=== PATIENT | female | born 1985 | race Caucasian/White ===

== ENCOUNTER → 2016-10-23 | Outpatient (CLI) | payer BC ==
[~2016-10-23] MED LIST: EFF75 PO; MULT-506 PO; NAPR1TAB9 PO; OMEG10007 PO
[2016-10-23 15:25] LABS: BASO % 0.5 %; BASO ABS # 0.04 K/uL (0-0.2); COMPLETE YES; EOS % 3.5 %; IG% 0.1 %; LYMPH ABS # 3.37 K/uL (1.2-3.4); MEAN CELL VOLUME 91.5 fL (80-100); MEAN CORPUSCULAR HEMOGLOBIN 30.6 pg (25-34); MEAN CORPUSCULAR HGB CONC 33.4 g/dl (32-36); MEAN PLATELET VOLUME 9.6 fL (7.4-10.4); MONO % 9.7 %; NEUT % 44.2 %; PLATELET COUNT 295 K/uL (130-400); RED BLOOD COUNT 4.48 M/uL (4.2-5.4); WHITE BLOOD COUNT 8.02 K/uL (4.8-10.8)
[2016-10-23 15:32] LABS: ALT/SGPT 24 U/L (12-78); BLOOD UREA NITROGEN 11 mg/dl (7-18); BUN/CREATININE RATIO 15.8 (10-20); CARBON DIOXIDE 27 mmol/L (21-32); CHLORIDE 104 mmol/L (98-107); CHOLESTEROL 205 mg/dl (0-200); CREATININE 0.69 mg/dl (0.60-1.20); GLUCOSE 92 mg/dl (70-99); POTASSIUM 3.9 mmol/L (3.5-5.1); SODIUM 138 mmol/L (136-145); TRIGLYCERIDES 52 mg/dl (0-150); VERY LOW DENSITY LIPOPROT CALC 10 mg/dl
[2016-10-23 15:43] LABS: ALB/GLOB RATIO 1.1 (0.9-2); ALKALINE PHOSPHATASE 99 U/L (45-117); AST/SGOT 20 U/L (15-37); CHOLESTEROL/HDL RATIO 2.5; HDL CHOLESTEROL 81 mg/dl
[2016-10-23 15:55] LABS: CALCIUM 9.4 mg/dl (8.5-10.1)
== END | disposition home or self-care (01) ==
LOC: C.LABSPEC 14:58
PROVIDERS: ATTEND Internal Medicine
DX: E78.5 Hyperlipidemia, unspecified (principal); R53.83 Other fatigue

== ENCOUNTER → 2017-03-01 | Outpatient (CLI) | payer BC | END | disposition home or self-care (01) | LOC: C.PAPS 14:34 | PROVIDERS: ATTEND Obstetrics & Gynecology | DX: Z01.419 Encounter for gynecological examination (general) (routine) without abnormal findings (principal) ==

== ENCOUNTER 2021-07-16 03:02 | Inpatient (IN) ==
[2021-07-16] MEDS ORDERED: OXYTOCIN 30 UNITS/500 ML BAG IV PRN ×3 (08:04→18:16)
[2021-07-16] MEDS: LACTATED RINGER'S 1,000 ML IV PRN ×3 (08:05→13:51)
[2021-07-16] MEDS ORDERED: BUPIVACAINE 0.25% 30 ML VIAL ONE (08:35)
[2021-07-16] MEDS ORDERED: ePHEDrine sulfate 50 MG/ML AMP ONE (08:35)
[2021-07-16] MEDS ORDERED: SODIUM CHLORIDE 0.9% INJ 10 ML VIAL ONE (08:35)
[2021-07-16 08:36] LABS: Hematocrit (blood only) 33.8 % (37-47); Hemoglobin 11.4 g/dL (12.0-16.0); Mean Corpuscular Hemoglobin 30.1 pg (25-34); Mean Corpuscular Hgb Conc 33.7 g/dL (32-36); Mean Corpuscular Volume 89.2 fL (80-100); Mean Platelet Volume 9.5 fL (7.4-10.4); Platelet Count 320 K/uL (130-400); RDW Coefficient of Variation 13.7 % (11.5-14.5); RDW Standard Deviation 44.7 fL (36.4-46.3); Red Blood Count 3.79 M/uL (4.2-5.4); White Blood Count 13.17 K/uL (4.8-10.8)
[2021-07-16] MEDS ORDERED: fentaNYL citrate 100 MCG/2 ML VIAL ONE (08:36)
[2021-07-16] MEDS ORDERED: fentaNYL 2MCG/ML ROPIVACAINE 1.25MG/ML 100 ML BAG EPI ONE (08:37)
[2021-07-16] MEDS ORDERED: NALOXONE HCL 1 MG in SODIUM CHLORIDE 0.9% 1000ML 1,000 ML IV PRN (08:47)
[2021-07-16] MEDS ORDERED: ONDANSETRON INJ 2 MG/ML 2 ML VIAL IV PRN (08:47)
[2021-07-16] MEDS ORDERED: fentaNYL 2MCG/ML ROPIVACAINE 1.25MG/ML 100 ML BAG EPI PRN (08:47)
[2021-07-16] MEDS ORDERED: NALOXONE HCL 0.4 MG/1 ML VIAL/CARP IV PRN (08:47)
[2021-07-16] MEDS ORDERED: ePHEDrine sulfate 50 MG/ML AMP IV PRN (08:47)
[2021-07-16] MEDS ORDERED: diphenhydrAMINE 50 MG/ML VIAL IV PRN (08:47)
[2021-07-16] MEDS ORDERED: NALBUPHINE HCL INJ 10 MG/ML AMP IV PRN (08:47)
--- NOTE | 2021-07-16 08:53 | Anesthesiology Consultation ---
Date of Service July 16, 2021 Assessment & Plan (1) Encounter for pre-operative examination: Chart Review Chart Review: Patient NOT seen in Pre Admission Testing and Acceptable Risk for Labor Epidural Consults Requested none ASA ASA2 Proposed Anesthesia Anesthesia Type: Labor Epidural and CSE Risk / Benefits Reviewed With: PT / POA / Parent / Guardian, Accepts Plan and Informed Consent Obtained History Height/Weight Height: 5 ft 6 in Weight: 80.739 kg Allergies Allergy/AdvReac Type Severity Reaction Status Date / Time No Known Allergies Allergy Unverified 05/27/15 16:10 Medications Home Medications Medication Instructions Recorded Confirmed Last Taken Fish Oil (Stanley-3) 1 cap PO #0 12/27/10 Unknown Multivitamin 1 tab PO DAILY #0 12/27/10 Unknown Naproxen (Aleve) 440 mg PO #0 12/27/10 Unknown VENLAFAXINE HCL (Effexor) 75 mg PO DAILY #0 tab 05/27/15 Unknown Active Medications Generic Name Dose Route Start Last Admin Trade Name Freq PRN Reason Stop Dose Admin Lactated Ringer's 1,000 mls @ 125 mls/hr 07/16/21 08:04 07/16/21 08:05 Lr IV 07/18/21 08:03 999 mls/hr .Q8H PRN Administration L&D Protocol Protocol NPO Date Last Intake of Fluids: 07/16/21 Time Last Intake of Fluids: 06:00 Date Last Intake of Solids: 07/15/21 Time Last Intake of Solids: 18:30 Past Medical History Medical History Hypertension affecting No known health problems Exercise / Class Metabolic Activity II 4-5 Yardwork/Stairs/Walk up hill Past Family History Family History Mother Hepatitis C Father Hypertension Past Surgical History Surgical History [place] teeth extracted Past Anesthesia History No Hx of Anesthesia Complications and No Family Hx of Anesthesia Complications History of PONV No Hx of PONV and No Hx of Motion Sickness Social History Smoking Status: Former smoker Smoking cigarettes per day: 5 Hx Alcohol Use: No Hx Substance Use: No Review of Systems no chest pain or sob Physical Exam Vital Signs Last Vital Signs Temp 36.5 C 07/16/21 07:55 Pulse 84 07/16/21 08:50 Resp 22 07/16/21 07:55 BP 147/89 H 07/16/21 07:53 Pulse Ox 98 07/16/21 08:50 ENMT Mouth: no TMJ abnormality Thyromental Distance: > or= 3.5 Finger Breadths Mallampati Class: II Neck normal visual inspection Respiratory normal respiratory effort Auscultation: lungs clear to auscultation bilaterally Cardiovascular Rate/Rhythm: regular rate and regular rhythm Musculoskeletal Spine: normal cervical ROM Neurologic moves all extremities Psychiatric Orientation: alert and oriented x 3 Testing Laboratory Results 07/16/21 08:24
[2021-07-16] MEDS ORDERED: miSOPROStoL 200 MCG TAB ONE (18:11)
[2021-07-16] MEDS ORDERED: ACETAMINOPHEN W/CODEINE #3 1 TAB PO PRN (18:16)
[2021-07-16] MEDS ORDERED: bisacodyL 10 MG SUPP PR PRN (18:16)
[2021-07-16] MEDS ORDERED: oxyCODONE/ACETAMINOPHEN 5mg/325mg TAB PO PRN (18:16)
[2021-07-16] MEDS ORDERED: miSOPROStoL 200 MCG TAB PR ONE (18:16)
[2021-07-16] MEDS ORDERED: BENZOCAINE 20% AER SPR 82.5 GM CAN EXT PRN (18:16)
[2021-07-16] MEDS ORDERED: ACETAMINOPHEN 325 MG TAB PO PRN (18:16)
[2021-07-16] MEDS ORDERED: HYDROCORTISONE ACETATE 25 MG SUPP PR PRN (18:16)
[2021-07-16] MEDS: IBUPROFEN 600 MG TAB PO PRN (18:29)
--- NOTE | 2021-07-16 20:17 | Delivery Summary ---
DATE OF SERVICE: 07/16/2021 DELIVERY NOTE: She is a 2, para 1. She had a previous spontaneous AB in the first trimester . Blood type is O positive, group B strep negative. She was scheduled for induction due to some spo radic elevations of blood pressure. However, when she arrived in the morning, she was already in act kathrine labor. She was 1 cm, posterior, was 100% effaced. She requested and received epidural anesthesi a. After receiving epidural anesthesia, the cervix was stretched to 4 cm. She was then placed on I V Pitocin to augment her contractions and get them more frequent. Eventually, her membranes were rup tured at about 6 cm. Fluid was clear. She then was stimulated. She went to full dilatation, pushed out a live male infant via direct occiput anterior position over an intact perineum. Cord was allow ed to pulse for a minute. Cord was then clamped, cut by the father. Cord blood was taken. With IV Pitocin running, the placenta was removed intact. Uterus contracted nicely. Inspection of t he perineum revealed a second-degree laceration. The perineum was torn slightly to the right. I use d a 2-0 Vicryl to approximate the vaginal mucosa out and to beyond the hymenal ring. I used a deep s uture of 2-0 Vicryl to approximate the bulbocavernosus muscle, separate deep suture to approximate th e perineal body and then a running subcuticular suture to approximate the perineal skin edges. Follo wing this, sponges were removed from the vagina. There was no hematoma formation, 800 mcg of Cytotec was placed, 4 tablets were placed rectally. Uterus contracted nicely. Estimated blood loss was 200 mL. Apgars will be deferred to the nurses. Job ID: [id number]
[2021-07-16] MEDS: DOCUSATE SODIUM 100 MG CAP PO SCH (20:46)
--- NOTE | 2021-07-16 22:02 | Anesthesia Procedure Note ---
Date of Service July 16, 2021 Anesthesia Post Epidural Note Vital Signs Vital Signs: Temp Pulse Resp BP Pulse Ox 36.7 C 93 H 20 140/66 96 07/16/21 20:15 07/16/21 20:15 07/16/21 20:15 07/16/21 20:15 07/16/21 17:50 Pain Intensity Bilateral Perineal: Pain Intensity: 2 Notes Mental Status: alert / awake / arousable and participated in evaluation Nausea / Vomiting: adequately controlled Pain: adequately controlled Airway Patency, RR, SpO2: stable & adequate BP & HR: stable & adequate Hydration State: stable & adequate Neuraxial Anesthesia: was administered and sensory block is resolving Anesthetic Complications: no major complications apparent and Pt Satisfied with anesthetic care Epidural: Removed without complications and With tip intact
[2021-07-17] MEDS: IBUPROFEN 600 MG TAB PO PRN ×2 (03:45→08:24)
[2021-07-17 06:21] LABS: Hematocrit (blood only) 32.3 % (37-47); Hemoglobin 10.7 g/dL (12.0-16.0); Mean Corpuscular Hemoglobin 29.6 pg (25-34); Mean Corpuscular Hgb Conc 33.1 g/dL (32-36); Mean Corpuscular Volume 89.5 fL (80-100); Mean Platelet Volume 9.7 fL (7.4-10.4); Platelet Count 309 K/uL (130-400); RDW Coefficient of Variation 13.6 % (11.5-14.5); RDW Standard Deviation 44.9 fL (36.4-46.3); Red Blood Count 3.61 M/uL (4.2-5.4); White Blood Count 16.87 K/uL (4.8-10.8)
[2021-07-17] MEDS: DOCUSATE SODIUM 100 MG CAP PO SCH ×2 (08:24→21:03)
[2021-07-17] MEDS: PRENATAL VITAMIN 1 TAB PO SCH (08:24)
--- NOTE | 2021-07-17 08:57 | Obstetrical Progress Note ---
Date of Service July 17, 2021 Assessment & Plan Admission and Anticipated Discharge Date Admission Date: July 16, 2021 Subjective abdomen soft and non tender no calf tenderness ambulating well vaginal bleeding scant hgb 10.7 Results & Data ([facility]) Vital Signs (Past 12 Hours) Vital Signs Temp Pulse Resp BP BP Pulse Ox 07/17/21 08:00 37 C 86 15 137/98 98 07/17/21 03:25 37.1 C 75 18 135/87 99 07/16/21 23:05 37.0 C 81 18 126/87 98 07/16/21 21:00 37.0 C 79 18 129/77 97
[2021-07-17] MEDS ORDERED: DIPHTHERIA/TETANUS/PERTUSSIS 0.5 ML SYR/VIAL IM ONE (09:00)
[2021-07-17] MEDS ORDERED: bisacodyL 5 MG TABEC PO SCH (20:00)
[2021-07-18] MEDS: IBUPROFEN 600 MG TAB PO PRN ×2 (03:09→08:27)
[2021-07-18 06:52] LABS: Hematocrit (blood only) 35.3 % (37-47); Hemoglobin 11.4 g/dL (12.0-16.0)
[2021-07-18] MEDS: DOCUSATE SODIUM 100 MG CAP PO SCH (08:27)
[2021-07-18] MEDS: PRENATAL VITAMIN 1 TAB PO SCH (08:28)
--- NOTE | 2021-07-18 09:06 | Obstetrical Progress Note ---
Date of Service July 18, 2021 Assessment & Plan Admission and Anticipated Discharge Date Admission Date: July 16, 2021 Subjective abdomen soft and non tender no calf tenderness ambulating well vaginal bleeding scant hgb 11.4 Results & Data ([facility]) Vital Signs (Past 12 Hours) Vital Signs Temp Pulse Resp BP Pulse Ox 07/18/21 01:50 61 134/88 07/18/21 00:05 36.6 C 62 18 147/95 H 98
== END 2021-07-18 12:15 | disposition home or self-care (01) | DRG 807 ==
LOC: 4S1 07:31 → 4S2 21:00
DX: O16.4 Unspecified maternal hypertension, complicating childbirth; Z87.891 Personal history of nicotine dependence; Z3A.39 39 weeks gestation of pregnancy; Z37.0 Single live birth; O70.1 Second degree perineal laceration during delivery